=== PATIENT | male | born 1985 | race Caucasian/White ===

== ENCOUNTER 2017-03-07 13:32 | Emergency (ER) | payer SELFPAY ==
--- NOTE | 2017-03-10 08:49 | CO ---
ADMIT: 03/07/2017 RM/LOC: ER [facility] MR#: [id number] [address] WHITNEY LOWERY Sada [address] [place] [address] Consultation SEX: M AGE: 31 : 1985 DATE OF CONSULTATION: 03/07/2017 ATTENDING PHYSICIAN: Feliciano Garcia MD CONSULTING PHYSICIAN: Surendra Pleitez MD CHIEF COMPLAINT: Left thumb laceration. HISTORY OF PRESENT ILLNESS: Whitney was functioning with a new knife, cut himself in the thumb, came to the ER to get stitches. There was concern for extensor tendon laceration, so I was consulted. OBJECTIVE: GENERAL: Awake, alert, and oriented, in no acute distress. He has a laceration about 2 cm with exposed tendon there, but he is able to flex and extend without any problems neurovascularly. Difficult to assess because he already had a block when I saw him. He did not endorse any numbness or tingling. The finger is still nice and pink, and there was plenty bleeding. ASSESSMENT: A 31-year-old male, left finger laceration. PLAN: I went ahead and explored it. I injected with about 5 mL of 1% lidocaine with epinephrine, put a tourniquet on and then explored the wound and irrigated with normal saline, made a little back cut about 1 cm to kind of raise a flap and examine the tendon. It looked like there was about 10% of the tendon had been lacerated just on account of the most radial side, but he had full motion of that. There was no exposure of the joint surface or anything else. Neurovascular structures around that side also looked intact. I can irrigate again and then close that with 4-0 Prolene suture just for the skin. I did not put any stitches in the tendon at all and then I put him in a sterile dressing with splint kind of holding that IP joint in extension in the thumb and then I will give him Keflex and then have him come back in a few days. We will switch that splint to some smaller and he can work in and then get the stitches out in about 2 weeks. Surendra Pleitez MD/ quoc JOB #: [id number] CC: Feliciano Garcia MD, Attending Physician Surendra Pleitez MD, Family Physician
--- NOTE | 2017-03-11 18:55 | ER ---
ADMIT: 03/07/2017 RM/LOC: ER [facility] MR#: [id number] [id number] WHITNEY LOWERY [address] [place] [address] Emergency Room Report SEX: M AGE: 31 : 1985 DATE: 03/07/2017 ADDENDUM: This patient comes into the ER because he cut his left thumb. He was putting in some breaks in his vehicle when he used a knife to open a package that was a clean new knife and he slit his thumb. I infiltrated the area with lidocaine. While inspecting the laceration, I noticed there was no tendon involvement. I did consult with Dr. Garcia concerning treatment of this patient. I then spoke with Dr. Pleitez, he came in and examined the patient and repaired his finger. DIAGNOSIS: Left thumb laceration with tendon involvement. Please see my T-sheet and Dr. Pleitez' dictation. RIGO Maxwell / Feliciano Garcia MD / lemuell JOB #: [id number] CC: Feliciano Garcia MD, Attending Physician Surendra Pleitez MD, Family Physician
== END 2017-03-07 15:06 | disposition home or self-care (01) ==
LOC: ER 13:32
PROC: 0HQGXZZ Repair Left Hand Skin, External Approach (ICD-10-PCS; principal; 2017-03-07)
DX: S66.222A Laceration of extensor muscle, fascia and tendon of left thumb at wrist and hand level, initial encounter (principal); W26.0XXA Contact with knife, initial encounter